=== PATIENT | female | born 1970 | race Caucasian/White ===

== ENCOUNTER 2017-02-13 14:23 | Emergency (ER) | payer BC ==
[~2017-02-13 14:23] MED LIST: ACYCLOVIR PO; ALAVERT10 MG PO; ALKA-SELTZ PLUS1 CAP PO; AMOXICILLIN500 M1 PO; AMOXICILLIN875 MG PO; ASTELIN137 MCG INH; AUGMENTIN875 MG PO; AURALGAN EAR DR14 ML AU; BACTRIM DS TABL1 TA1 PO; BACTRIM DS TABL1 TA2 PO; BACTROBAN15 GM; CLARITIN D PO; FLONASE 0.05% N16 G1; GLUCOSAMINE & C1 CAP PO; IBUPROFEN PO; LISINOPRIL-HCTZ1 T19 PO; LORTAB 5/500 TA1 TA1 PO; MOBIC PO; MULTI-VITAMIN1 TAB PO; NASONEX17 GM; NYQUIL D COLD295 ML PO; SUDAFED60 MG PO; VIT B PO; VIT D PO; VOLTAREN75 MG PO; ZANTAC PO; ZYLOPRIM100 MG; ZYLOPRIM100 MG PO; ZYRTEC10 M1 PO; [UNRECOGNIZED DRUG - REMARK]; [UNRECOGNIZED DRUG - REMARK]
[2017-02-13] MEDS ORDERED: SULFADIAZINE (14:26)
[2017-02-13] MEDS ORDERED: BENTYL20 MG (14:26)
== END 2017-02-13 15:00 | disposition home or self-care (01) ==
LOC: SED 14:23
DX: R51 Headache (principal); I10 Essential (primary) hypertension; F17.200 Nicotine dependence, unspecified, uncomplicated; Z91.040 Latex allergy status; Z90.710 Acquired absence of both cervix and uterus; Z79.899 Other long term (current) drug therapy; Z88.8 Allergy status to other drugs, medicaments and biological substances
CPT/HCPCS: 99282

== ENCOUNTER 2017-02-24 18:37 | Emergency (ER) | payer BC ==
[~2017-02-24 18:37] MED LIST changes: +BENTYL20 MG; +SULFADIAZINE
== END 2017-02-24 19:15 | disposition home or self-care (01) ==
LOC: SED 18:37
DX: L03.313 Cellulitis of chest wall (principal); I10 Essential (primary) hypertension; G47.30 Sleep apnea, unspecified; F17.200 Nicotine dependence, unspecified, uncomplicated; Z90.710 Acquired absence of both cervix and uterus
CPT/HCPCS: 99283